=== PATIENT | female | born 1950 | race Hispanic/Latino ===

== ENCOUNTER 2021-06-05 14:16 | Emergency (ER) | payer SELFPAY ==
--- NOTE | 2021-06-05 15:41 | RAD REPORT ---
EXAM DESCRIPTION: CT - Head Brain Wo Cont - 06/05/2021 3:34 pm CLINICAL HISTORY: Dizziness COMPARISON: None TECHNIQUE: Computed axial tomography of the head was obtained. IV contrast was not requested. All CT scans are performed using dose optimization technique as appropriate and may include automated exposure control or mA/KV adjustment according to patient size. FINDINGS: An intracranial bleed is not seen . The ventricles are normal in caliber. No extra-axial fluid collection is noted. Mild low-density areas within periventricular, deep and subcortical white matter likely represent is chemic changes secondary to small vessel disease. Fluid within the sinuses/ mastoids is not seen. IMPRESSION: No acute intracranial abnormality is seen. If patient's symptoms persist MRI of the bra in would be recommended.
[2021-06-05 16:10] LABS: Basophils % 0.6 % (0-1.3); Hematocrit 40.4 % (36.0-45.0); Lymphocytes % 19.2 % (15.3-44.8); MPV 9.6 fL (7.6-11.3); RBC Red Blood Cell Count 4.41 M/uL (3.86-4.86)
[2021-06-05 16:45] LABS: BUN Blood Urea Nitrogen 24 mg/dL (7-18); Bicarbonate 29 mmol/L (21-32); Glucose Level 123 mg/dL (74-106); Potassium 4.4 mmol/L (3.5-5.1); Sodium Level 139 mmol/L (136-145); Troponin (Emerg Dept Use Only) < 0.02 ng/mL (0.0-0.045)
--- NOTE | 2021-06-05 16:53 | EDPHYS ---
Physician Documentation [facility] Name: Shailesh Timmons Age: 71 yrs Sex: Female : 1950 Arrival Date: 06/05/2021 Time: 14:19 Bed 11 Private MD: ED Physician Praful Mccrary HPI: 06/05 15:22 This 71 yrs old Female presents to ER via Wheelchair with complaints of High rn Blood Pressure. 15:22 The patient has elevated blood pressure and discovered this at home. Onset: The rn symptoms/episode began/occurred today. Modifying factors:. Associated signs and symptoms: Pertinent positives: dizziness, lightheadedness, weakness, Pertinent negatives: chest pain, headache, vomiting. The patient has experienced similar episodes in the past. The patient has not recently seen a physician. Patient and daughter report that earlier today think blood pressure was elevated. She was at home when felt flushed, lightheaded, dizzy, blurred vision in both eyes and generalized weakness. Symptoms lasted for about 30 minutes and since have resolved. Patient without any complaints currently. States on 4 5 different blood pressure medications from [place] just came here recently.. Historical: - Allergies: 14:42 No Known Allergies; vg1 - Home Meds: 14:42 Insulin Glargine Sub-Q [Active]; valsartan oral [Active]; Furosemide Oral [Active]; vg1 amlodipine oral [Active]; Aspirin Oral [Active]; atorvastatin oral [Active]; Isosorbide Mononitrate Oral [Active]; Spironolactone Oral [Active]; bisoprolol-hydrochlorothiazide oral [Active]; - PMHx: 14:42 Hypertensive disorder; Diabetes mellitus; vg1 - Immunization history:: Adult Immunizations up to date, Client reports receiving the 2nd dose of the Covid vaccine. - Social history:: Smoking status: Patient denies any tobacco usage or history of. - Family history:: not pertinent. - Hospitalizations: : No recent hospitalization is reported. ROS: 15:22 Constitutional: Negative for fever, chills, and weight loss, Eyes: Negative for injury, rn pain, redness, and discharge, ENT: Negative for injury, pain, and discharge, Neck: Negative for injury, pain, and swelling, Cardiovascular: Negative for chest pain, palpitations, and edema, Respiratory: Negative for shortness of breath, cough, wheezing, and pleuritic chest pain, Abdomen/GI: Negative for abdominal pain, nausea, vomiting, diarrhea, and constipation, Back: Negative for injury and pain, : Negative for injury, bleeding, discharge, and swelling, MS/Extremity: Negative for injury and deformity, Skin: Negative for injury, rash, and discoloration, Neuro: Negative for headache, numbness, tingling, and seizure. Exam: 15:22 Constitutional: This is a well developed, well nourished patient who is awake, alert, rn and in no acute distress. Head/Face: Normocephalic, atraumatic. Eyes: Periorbital areas with no swelling, redness, or edema. Neck: Trachea midline, no masses palpated, and no cervical lymphadenopathy. Supple, full range of motion without nuchal rigidity, or vertebral point tenderness. No Meningismus. Cardiovascular: Regular rate and rhythm. No pulse deficits. Respiratory: No increased work of breathing, no retractions or nasal flaring. Abdomen/GI: Soft, non-tender Skin: Warm, dry MS/ Extremity: Pulses equal, no cyanosis. Neuro: Awake and alert, GCS 15, oriented to person, place, time, and situation. Cranial nerves II-XII grossly intact. Motor strength 5/5 in all extremities. Sensory grossly intact. Cerebellar exam normal. Vital Signs: 14:39 BP 160 / 72; Pulse 72; Resp 16; Temp 98.2; Pulse Ox 100% ; Weight 56 kg; Height 5 ft. 0 vg1 in. (152.40 cm); Pain 0/10; 17:25 BP 131 / 66; Pulse 73; Resp 17; Pulse Ox 100% ; oh 14:39 Body Mass Index 24.11 (56.00 kg, 152.40 cm) vg1 MDM: 15:06 Patient medically screened. rn 16:49 Differential diagnosis: hypertensive crisis, Malignant HTN. Data reviewed: vital signs, rn nurses notes, lab test result(s), EKG, radiologic studies, CT scan, and as a result, I will discharge patient. Data interpreted: security monitor: rate is 72 beats/min, rhythm is normal sinus rhythm, regular, with no ectopy, Pulse oximetry: on room air is 100 %. Interpretation: normal. Counseling: I had a detailed discussion with the patient and/or guardian regarding: the historical points, exam findings, and any diagnostic results supporting the discharge/admit diagnosis, the presence of at least one elevated blood pressure reading (>120/80) during this emergency department visit, lab results, radiology results, the need for outpatient follow up, to return to the emergency department if symptoms worsen or persist or if there are any questions or concerns that arise at home. Response to treatment: the patient's symptoms have markedly improved after treatment, and as a result, I will discharge patient. Special discussion: I have referred the patient to see his PCP for further evaluation of high blood pressure. I discussed with the patient/guardian in detail that at this point there is no indication for admission to the hospital. It is understood, however, that if the symptoms persist or worsen the patient needs to return immediately for re-evaluation. ED course: CT head negative for acute abnormality. No acute findings in blood. Left bundle branch block on EKG but no changes compared to EKG that patient has brought in the past from [place]. Will DC home with instructions to continue medication and follow-up with PCP as needed for further blood pressure management. 06/05 14:48 Order name: Glucose, Ancillary Testing; Complete Time: 15:08 EDMS 06/05 15:20 Order name: CBC with Diff rn 06/05 15:20 Order name: Basic Metabolic Panel rn 06/05 15:20 Order name: Troponin (emerg Dept Use Only) rn 06/05 15:21 Order name: CBC with Automated Diff; Complete Time: 16:49 EDMS 06/05 15:21 Order name: Basic Metabolic Panel; Complete Time: 16:49 EDMS 06/05 15:20 Order name: IV Start; Complete Time: 16:04 rn 06/05 15:20 Order name: CT Head Brain wo Cont; Complete Time: 15:43 rn 06/05 15:20 Order name: EKG; Complete Time: 15:21 rn 06/05 15:20 Order name: EKG - Nurse/Tech; Complete Time: 16:04 rn 06/05 15:21 Order name: Troponin (Emerg Dept Use Only); Complete Time: 16:49 EDMS Administered Medications: No medications were administered Disposition Summary: 06/05/21 16:52 Discharge Ordered Location: Home rn Problem: an ongoing problem rn Symptoms: have improved rn Condition: Stable rn Diagnosis - Essential (primary) hypertension rn Followup: rn - With: Private Physician - When: As needed - Reason: Recheck today's complaints, Re-evaluation by your physician Discharge Instructions: - Discharge Summary Sheet rn - Hypertension, Adult rn Forms: - Medication Reconciliation Form rn - Thank You Letter rn - 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
--- NOTE | 2021-06-05 16:53 | ER ---
Nurse's Notes [facility] Name: Shailesh Timmons Age: 71 yrs Sex: Female : 1950 Arrival Date: 06/05/2021 Time: 14:19 Bed 11 Private MD: Diagnosis: Essential (primary) hypertension Presentation: 06/05 14:39 Chief complaint: Patient states: Pt BP yesterday was 189 systolic and today 179 vg1 systolic. Pt states has been feeling 'shaky, feels like is going to blackout' and has been feeling nauseous. Denies headache and chest pain. Coronavirus screen: Vaccine status: Patient reports receiving the 2nd dose of the covid vaccine. Ebola Screen: Patient negative for fever greater than or equal to 101.5 degrees Fahrenheit, and additional compatible Ebola Virus Disease symptoms. Initial Sepsis Screen: Does the patient meet any 2 criteria? No. Patient's initial sepsis screen is negative. Does the patient have a suspected source of infection? No. Patient's initial sepsis screen is negative. Risk Assessment: Do you want to hurt yourself or someone else? Patient reports no desire to harm self or others. Onset of symptoms was June 04, 2021. 14:39 Method Of Arrival: Wheelchair vg1 14:39 Acuity: ROSIE 3 vg1 Triage Assessment: 14:42 General: Appears in no apparent distress. comfortable, Behavior is calm, cooperative. vg1 Pain: Denies pain. Historical: - Allergies: 14:42 No Known Allergies; vg1 - Home Meds: 14:42 Insulin Glargine Sub-Q [Active]; valsartan oral [Active]; Furosemide Oral [Active]; vg1 amlodipine oral [Active]; Aspirin Oral [Active]; atorvastatin oral [Active]; Isosorbide Mononitrate Oral [Active]; Spironolactone Oral [Active]; bisoprolol-hydrochlorothiazide oral [Active]; - PMHx: 14:42 Hypertensive disorder; Diabetes mellitus; vg1 - Immunization history:: Adult Immunizations up to date, Client reports receiving the 2nd dose of the Covid vaccine. - Social history:: Smoking status: Patient denies any tobacco usage or history of. - Family history:: not pertinent. - Hospitalizations: : No recent hospitalization is reported. Screenin:15 Abuse screen: Denies threats or abuse. Nutritional screening: No deficits noted. oh Tuberculosis screening: No symptoms or risk factors identified. Fall Risk Gait- Weak (10 pts.). Assessment: 16:14 General: Appears in no apparent distress. Behavior is calm, cooperative, appropriate oh for age, Reports high blood sugar reading despite pt continuously taking her bp meds. Vital Signs: 14:39 BP 160 / 72; Pulse 72; Resp 16; Temp 98.2; Pulse Ox 100% ; Weight 56 kg; Height 5 ft. 0 vg1 in. (152.40 cm); Pain 0/10; 17:25 BP 131 / 66; Pulse 73; Resp 17; Pulse Ox 100% ; oh 14:39 Body Mass Index 24.11 (56.00 kg, 152.40 cm) vg1 ED Course: 14:19 Patient arrived in ED. mr 14:42 Triage completed. vg1 14:42 Arm band placed on. vg1 15:05 Marcus Hickey, RN is Primary Nurse. oh 15:06 Praful Mccrary MD is Attending Physician. rn 15:35 CT Head Brain wo Cont In Process Unspecified. EDMS 16:12 Inserted saline lock: 20 gauge in right antecubital area, using aseptic technique. oh Blood collected. 16:15 Call light in reach. Adult w/ patient. oh 17:26 IV discontinued, bleeding controlled, Pressure dressing applied. oh 17:26 No provider procedures requiring assistance completed. oh Administered Medications: No medications were administered Outcome: 16:52 Discharge ordered by MD. rn 17:26 Discharged to home via wheelchair, with family. oh 17:26 Condition: good 17:26 Discharge instructions given to patient, family. 17:26 Patient left the ED. oh Signatures: Dispatcher [employer] [facility] Karis Holt Praful Mccrary MD MD rn Garcia, Victoria, RN RN vg1 Marcus Hickey, RN RN oh
[2021-06-05 17:35] VITALS: TEMP 98.2; O2SAT 100
[2021-06-05 17:36] VITALS: BP 131/66
--- NOTE | 2021-06-06 10:41 | EKG ---
Test Date: 2021-06-05 Test Time: 15:59:36 Game Engineer: NASH MEASUREMENT RESULTS: Intervals: Rate: 75 WI: 166 QRSD: 174 QT: 436 QTc: 486 [place]: P: 48 WI: 166 QRS: -2 T: 171 INTERPRETIVE STATEMENTS: Normal sinus rhythm Left bundle branch block Abnormal ECG No previous ECG available for comparison Electronically Signed On 06-06-21 10:39:53 CDT by Nasim Fairchild
== END 2021-06-05 17:26 | disposition home or self-care (01) ==
LOC: ER 14:16
DX: I10 Essential (primary) hypertension (principal); E11.9 Type 2 diabetes mellitus without complications; Z79.4 Long term (current) use of insulin; Z79.82 Long term (current) use of aspirin
CPT/HCPCS: 36415; 70450; 80048; 82947; 84484; 85025; 93005; 99283